=== PATIENT | female | born 1955 | race Caucasian/White ===

== ENCOUNTER 2020-11-10 14:07 | Emergency (ER) | payer OTHER ==
[2020-11-10] MEDS ORDERED: MEDROL 4MG DOSEP4 MG PO (16:50)
[2020-11-10] MEDS ORDERED: CYCLOBENZAPRINE10 MG PO (16:50)
== END 2020-11-10 17:20 | disposition home or self-care (01) ==
LOC: FER 14:07
DX: S29.012A Strain of muscle and tendon of back wall of thorax, initial encounter (principal); I10 Essential (primary) hypertension; Z88.0 Allergy status to penicillin; Z88.6 Allergy status to analgesic agent; V89.2XXA Person injured in unspecified motor-vehicle accident, traffic, initial encounter; Y92.410 Unspecified street and highway as the place of occurrence of the external cause
CPT/HCPCS: 70450; 72125; 72128; 72131; J1100

== ENCOUNTER 2021-03-27 11:30 | Emergency (ER) | payer OTHER ==
[~2021-03-27 11:30] MED LIST: CYCLOBENZAPRINE10 MG PO; MEDROL 4MG DOSEP4 MG PO
== END 2021-03-27 13:42 | disposition home or self-care (01) ==
LOC: FER 11:30
DX: R25.3 Fasciculation (principal); I10 Essential (primary) hypertension; E78.5 Hyperlipidemia, unspecified; Z90.89 Acquired absence of other organs
CPT/HCPCS: 93005